=== PATIENT | male | born 1940 | race Caucasian/White ===

== ENCOUNTER → 2017-10-12 | Outpatient (CLI) | payer MEDICARE, BC ==
--- NOTE | 2017-10-12 17:14 | 2DMMODE ---
[place] [address] 2 D/M-MODE ECHOCARDIOGRAM Name: SHANDALUDIVINA Fabby Room: [facility]#: [id number] Admission: 10/12/17 Attend Phys: Eddi Nixon MD Discharge: Date of : 38 Date of Service: 10/12/17 1714 Report #: [id number] THIS REPORT FOR: //name// APPROVED REPORT Study performed: 10/12/2017 13:06:16 EXAM: Comprehensive 2D, Doppler, and color-flow Echocardiogram Patient Location: Out-Patient Status: routine BSA: 2.13 HR: 67 bpm BP: 150/90 mmHg Other Information Study Quality: Good Indications Murmur 2D Dimensions LVEF(%): 71.53 (>50%) IVSd: 13.60 (7-11mm) LVOT Diam: 20.70 (18-24mm) LVDd: 46.92 mm PWd: 12.00 (7-11mm) Ascending Ao: 32.20 (22-36mm) LVDs: 27.80 (25-40mm) Aortic Root: 30.54 mm Garcia's LVEF: 71.53 % Volumes Left Atrial Volume (Systole) LA ESV Index: 15.90 mL/m2 Aortic Valve AoV Peak Perfecto.: 3.32 m/s AO Peak Gr.: 43.99 mmHg LVOT Max P.96 mmHg AO Mean Gr.: 26.42 mmHg LVOT Mean P.08 mmHg LVOT Max V: 0.70 m/s AO V2 VTI: 77.24 cm LVOT Mean V: 0.49 m/s JUAN (VTI): 0.87 cm2 LVOT V1 VTI: 20.04 cm Mitral Valve E/A Ratio: 0.84 MV Decel. Time: 244.49 [place] [address] 2 D/M-MODE ECHOCARDIOGRAM Name: SHANDALUDIVINA Fabby Room: [facility]#: [id number] Admission: 10/12/17 Attend Phys: Eddi Nixon MD Discharge: Date of : 38 Date of Service: 10/12/17 1714 Report #: [id number] MV E Max Perfecto.: 0.86 m/s MV PHT: 70.90 ms MVA (PHT): 3.10 cm2 TDI E/Lateral E': 9.56 E/Medial E': 17.20 Medial E' Perfecto.: 0.05 m/s Lateral E' Perfecto.: 0.09 m/s Pulmonary Valve PV Peak Perfecto.: 0.94 m/s PV Peak Gr.: 3.50 mmHg Left Ventricle The left ventricle is normal size. There is normal LV segmental wall motion. Mild concentric left ventricular hypertrophy. Left ventricular systolic function is normal. The left ventricular ejection fraction is within the normal range. LVEF is 60%. Grade I - abnormal relaxation pattern. Right Ventricle The right ventricle is normal size. The right ventricular systolic function is normal. Atria The left atrium size is normal. The right atrium size is normal. Aortic Valve Aortic valve is moderately calcified. Trace aortic regurgitation. Mild to moderate aortic stenosis. Mitral Valve There is mild mitral annular calcification. There is no mitral valve regurgitation noted. No evidence of mitral valve stenosis. Tricuspid Valve The tricuspid valve is normal in structure. There is no tricuspid valve regurgitation noted. Pulmonic Valve The pulmonary valve is normal in structure. There is no pulmonic valvular regurgitation. Great Vessels The aortic root is normal in size. IVC is normal in size and collapses with >50% [place] [address] 2 D/M-MODE ECHOCARDIOGRAM Name: LUDIVINA LAND Room: [facility]#: [id number] Admission: 10/12/17 Attend Phys: Eddi Nixon MD Discharge: Date of : 38 Date of Service: 10/12/17 1714 Report #: [id number] Pericardium There is no pericardial effusion. <Conclusion> The left ventricle is normal size. Mild concentric left ventricular hypertrophy. Left ventricular systolic function is normal. The left ventricular ejection fraction is within the normal range. LVEF is 60%. Grade I - abnormal relaxation pattern. The left atrium size is normal. Aortic valve is moderately calcified. Trace aortic regurgitation. Mild to moderate aortic stenosis. There is mild mitral annular calcification. The tricuspid valve is normal in structure. IVC is normal in size and collapses with >50% inspiration There is no pericardial effusion. There is normal LV segmental wall motion. <ELECTRONICALLY SIGNED> By: Ilya Caputo MD, FACC 10/12/17 171 13 13 Ilya Caputo MD, FACC /INF
== END ==
LOC: M.CRD 12:44
DX: I35.0 Nonrheumatic aortic (valve) stenosis (principal); I34.8 Other nonrheumatic mitral valve disorders; E66.9 Obesity, unspecified; I10 Essential (primary) hypertension; I25.10 Atherosclerotic heart disease of native coronary artery without angina pectoris